=== PATIENT | male | born 2005 | race Two or more races ===

== ENCOUNTER 2024-10-13 07:42 | Emergency (ER) | payer MEDICAID ==
[~2024-10-13] VITALS: Ht 180.3 cm; Wt 75.8 kg
[2024-10-13 07:54] VITALS: PULSE 78; RESP 18; O2SAT 98
--- NOTE | 2024-10-13 08:14 | ED.PDOC ---
HPI Comments 19 year old male presents to the ED with a chief complaint of LT wrist laceration onset last night around 23:00. Patient states he was at a libertarian, was picking an object from the floor when he cut his LT wrist with a glass bottle. Patient was able to control bleeding. Denies any PMHx as well as fever, chills, numbness/tingling, headache, dizziness, nausea, vomiting. No other symptoms or modifying factors present at this time. Chief Complaint: Laceration Time Seen by MD: 08:00 Primary Care Provider: TOÑO Hankins Notes: Nurses Notes, Medications, Allergies Allergies: Coded Allergies: NO KNOWN ALLERGIES (Unverified , 10/13/24) Home Meds Active Scripts Amoxicillin Trihydrate (Amoxicillin) 500 Mg Tab, 1 TAB PO TID for 7 Days, #21 TAB Prov:TEX BREWSTER MD 10/13/24 Information Source: Patient Mode of Arrival: Ambulatory Severity: Moderate Severity of Laceration: Controlled Bleeding Complexity: Complex Timing: Hours Prehospital treatment: None Laceration Location: Other (WRIST) Mechanism: Glass Last Tetanus: Unknown Laceration Length (cm): 3 Skin Type: Linear Depth of Injury: Skin Tendon Injury: 0% Tender: Moderate Past Medical History PAST MEDICAL HISTORY: Denies Surgical History: Denies all surgeries Family History Family History: Reviewed,noncontributory to illness, No family hx of Cancer, No family hx of DM, No family hx of Heart fidelina, No family hx of HTN, No family hx ofKidney fidelina, No family hx of Liver fidelina, No family hx of Lung fidelina, No family hx of Stroke Social History Smoker: Non-Smoker Alcohol: Denies ETOH Use Drugs: Denies Drug Use Lives In: Home Constitutional: denies: chills, diaphoresis, fatigue, fever, malaise, sweats, weakness, others EENTM: denies: blurred vision, double vision, ear bleeding, ear discharge, ear drainage, ear pain, ear ringing, eye pain, eye redness, hearing loss, mouth pain, mouth swelling, nasal discharge, nose bleeding, nose congestion, nose pain, photophobia, tearing, throat pain, throat swelling, voice changes, others Respiratory: denies: cough, hemoptysis, orthopnea, SOB at rest, shortness of breath, SOB with excertion, stridor, wheezing, others Cardiovascular: denies: chest pain, dizzy spells, diaphoresis, Dyspnea on exertion, edema, irregular heart beat, left arm pain, lightheadedness, palpitations, PND, syncope, others Gastrointestinal: denies: abdomen distended, abdominal pain, blood streaked bowels, constipated, diarrhea, dysphagia, difficulty swallowing, hematemesis, melena, nausea, poor appetite, poor fluid intake, rectal bleeding, rectal pain, vomiting, others Genitourinary: denies: burning, dysuria, flank pain, frequency, hematuria, in continence, penile discharge, penile sore, pain, testicle pain, testicle swelling, urgency, others Neurological: denies: dizziness, fainting, headache, left sided numbness, left sided weakness, numbness, paresthesia, pre-existing deficit, right sided numbness, right sided weakness, seizure, speech problems, tingling, tremors, weakness, others Musculoskeletal: denies: back pain, gout, joint pain, joint swelling, muscle pain, muscle stiffness, neck pain, others Integumetry: reports: laceration (LT wrist); denies: bruises, change in color, change in hair/nails, dryness, lesions, lumps, rash, wounds, others Allergic/Immunocompromised: denies: Difficulty Healing, Frequent Infections, Hives, Itching, others Hematologic/Lymphatic: denies: anemia, blood clots, easy bleeding, easy bruising, swollen glands, others Endocrine: denies: excessive hunger, excessive sweating, excessive thirst, excessive urination, flushing, intolerance to cold, intolerance to heat, unexplained weight gain, unexplained weight loss, others Psychiatric: denies: anxiety, bipolar disorder, depression, hopeless, panic disorder, schizophrenia, sleepless, suicidal, others All Other Systems: Reviewed and Negative Physical Exam General Appearance: Moderate Distress, Normal HEENT: Normal ENT Inspection, Pharynx Normal, TMs Normal Neck: Full Range of Motion, Non-Tender, Normal, Normal Inspection Respiratory: Chest Non-Tender, Lungs Clear, No Accessory Muscle Use, No Respiratory Distress, Normal Breath Sounds Cardiovascular: No Edema, No JVD, No Murmur, No Gallop, Normal Peripheral Pulses, Regular Rate/Rhythm Breast Exam: Deferred Gastrointestinal: No Organomegaly, Non Tender, No Pulsatile Mass, Normal Bowel Sounds, Soft Genitalia: Deferred Pelvic: Deferred Rectal: Deferred Extremities: No calf tenderness, Normal capillary refill, Normal inspection, Normal range of motion, Non-tender, No pedal edema Musculoskeletal : Apperance: Normal Neurologic: Alert, oracle apex developer II-XII nml as Tested, No Motor Deficits, Normal Affect, Normal Mood, No Sensory Deficits Cerebellar Function: Normal Reflexes: Normal Skin: Dry, Lacerations (Left wrist), Normal Color, Warm Peripheral Pulses: 3+ Radial (R), 3+ Radial (L) Lymphatic: No Adenopathy Was a procedure done? Was a procedure done?: Yes Sedation Sedation?: No Laceration Repair : Location LT Wrist Length 3cm Anesthetic: Lidocaine Laceration Repair Prep: Saline, Betadine, by Irrigation Laceration Repair Wound Comple: epidermis/dermis repair Laceration Repair: Number of sutures (7), Size (3 cm), Nylon (4.0) Informed consent obtained: Yes Risks, benefits, and alternati: Yes Differential diagnosis Generic Laceration: Abrasion/Contusion, Laceration X-Ray, Labs, Meds, VS Vital Signs Date Time Temp Pulse Resp B/P (MAP) Pulse Ox O2 Delivery O2 Flow Rate FiO2 10/13/24 09:00 98.0 84 16 129/49 (75) 97 98.0 10/13/24 07:54 78 18 98 Room Air* 0 21 10/13/24 07:54 97.7 78 18 133/55 (81) 98 97.7 10/13/24 07:54 97.7 78 18 133/55 (81) 98 97.7 Current Medications Medications (Trade) Dose Ordered Sig/Neda Route Start Time Stop Time Status Last Admin Diphtheria/ Tetanus/Acell Pertussis (Boostrix T-Dap) 0.5 ml ONCE ONCE IM 10/13/24 09:00 10/13/24 09:01 DC 10/13/24 08:59 Patient alert. Does have a laceration on the left wrist. Sutured. Vitals stable. Answering all questions. Was given tetanus. Was given prescription of amoxicillin antibiotic. Explained to the patient. Was told to follow up with his primary care physician. Was told to come back if there is any problem. Time of 1ST Reevaluation: 08:30 Reevaluation 1ST: Unchanged Time of 2ND Reevaluation: 08:48 Reevaluation 2ND: Improved Patient Education/Counseling: Diagnosis, Treatment, Prognosis Family Education/Counseling: No Family Present Departure 1 Departure Time of Disposition: 08:49 Impression: Primary Impression: Laceration Disposition: 01 HOME / SELF CARE / HOMELESS Condition: Good e-Prescriptions Amoxicillin Trihydrate (Amoxicillin) 500 Mg Tab 1 TAB PO TID for 7 Days, #21 TAB Prov: TEX BREWSTER MD 10/13/24 Discharged With: Self Critical Care Note Critical Care Time?: No Stability Stability form required: No Heart Score Heart Score: Heart Score Response (Comments) Value History N/A 0 EKG N/A 0 Age N/A 0 Risk Factors N/A 0 Troponin N/A 0 Total 0 I personally scribed for TEX BREWSTER MD ([email or web address]) on 10/13/24 at 08:14. Electronically submitted by Fidelia Posey ([email or web address]). TEX BREWSTER MD October 13, 2024 08:14
[2024-10-13] MEDS ORDERED: AMOX500T3 PO (08:49)
[2024-10-13] MEDS: TETANUS-DIPTH-ACEL PERTUSSIS 0.5ML SYR Tdap IM ONE (08:59)
[2024-10-13 09:00] VITALS: BP 129/49; PULSE 84; RESP 16; TEMP 98; O2SAT 97
== END 2024-10-13 09:02 | disposition home or self-care (01) ==
LOC: ER 07:42
DX: S61.512A Laceration without foreign body of left wrist, initial encounter (principal); Z79.899 Other long term (current) drug therapy; W25.XXXA Contact with sharp glass, initial encounter; Y93.89 Activity, other specified; Y92.89 Other specified places as the place of occurrence of the external cause; Y99.8 Other external cause status
CPT/HCPCS: 12002; 90471; 90715